=== PATIENT | male | born 1980 | race Caucasian/White ===

== ENCOUNTER 2016-09-30 16:28 | Inpatient (IN) | payer OTHER ==
--- NOTE | ~2016-09-30 | HP ---
Unit #: [id number] #: [id number] Patient: DENNISE ALICIA [id number] [place] [address] [id number] I MR#: [id number] NAME: DENNISE ALICIA ROOM: P209 Age: 35 Sex: M Admission Date: 09/30/2016 : 1980 Attending Physician: Linus Aviles M.D. Admitting Physician: Linus Aviles M.D. Primary Care Physician: Primary Care Physician No HISTORY AND PHYSICAL HISTORY OF PRESENT ILLNESS Dennise is a 35-year-old male admitted on 09/30/[address] [place] [address] for detox from heroin, depression and anxiety. PAST MEDICAL HISTORY None. PAST SURGICAL HISTORY None. ALLERGIES None. SOCIAL HISTORY Smokes 1 pack of cigarettes daily. No alcohol use. Does report daily heroin use. He is currently single and living with his girlfriend and their daughter. FAMILY HISTORY Noncontributory. REVIEW OF SYSTEMS CONSTITUTIONAL: No fever or chills. HEENT: Denies any sore throat, ear pain or runny nose. CARDIOVASCULAR: Denies chest pain, irregular heart rhythm or palpitations. CHEST: Denies shortness of breath or cough. No hemoptysis. GASTROINTESTINAL: Denies nausea, vomiting, diarrhea or chronic constipation. ENDOCRINE: Denies history of increased thirst or urination. No recent significant weight loss or gain. GENITOURINARY: Denies dysuria, frequency, or hematuria. SKIN: Denies any rashes. HEMATOLOGIC: Denies history of increased bleeding or bruising. MUSCULOSKELETAL: Denies any hot, swollen joints. No generalized muscle pain. NEUROLOGIC: Denies problems with vision or speech. No frequent, severe headaches. No numbness, tingling or weakness in any extremities. Denies loss of bladder or bowel control. CURRENT MEDICATIONS None. PHYSICAL EXAMINATION Unit #: [id number] #: [id number] Patient: DENNISE ALICIA GENERAL: Alert, oriented, in no acute distress. VITAL SIGNS: Blood pressure 130/82, heart rate 95, respirations 16. HEIGHT: 6 feet 2. WEIGHT: 170 pounds. SKIN: Warm and dry without rash or lesion. HEENT: Normocephalic. TMs not viewed. Oral and nasal passages clear. Conjunctivae clear. PERRLA. EOMs intact. NECK: Supple without lymphadenopathy or thyromegaly. HEART: Regular rate and rhythm without murmur. LUNGS: Clear. ABDOMEN: Soft, nontender, without masses or hepatosplenomegaly. : Not done. EXTREMITIES: No evidence of cyanosis, clubbing or edema. Moves all without focal deficit. NEUROLOGICAL: Grossly within normal limits. Cranial Nerves: II: Visual townsend are intact. III, IV AND : Extraocular movements are intact. Pupils are equal, round and reactive to light. V: Facial sensation is grossly normal. VII: Facial movements and expression are normal. VIII: Auditory acuity grossly intact. IX, X: Uvula is midline. Phonation is normal. XI: Patient shrugs shoulders and turns head normally. XII: Tongue protrudes in the midline. Sensory and Motor Function: Sensory and motor sensation is grossly normal. Motor: moves all extremities well. Coordination: Gait is normal. Deep Tendon Reflexes: Intact. IMPRESSION Psychiatric admission. RECOMMENDATIONS PSYCHIATRIC: Per psychiatrist. MEDICAL: No contraindications to participate in facility's activities. MEDICAL PROGNOSIS Good. MEDICAL CONDITION Stable. Dictated by... Radha Benoit/frank TD: 10/01/2016 18:42 JOB #: [id number] Unit #: [id number] #: [id number] Patient: DENNISE ALICIA HISTORY AND PHYSICAL Page 1 of 1 X MO YOUNG APRN X HISTORY AND PHYSICAL
--- NOTE | ~2016-09-30 | PN ---
Unit #: [id number] #: [id number] Patient: DENNISE ALICIA [id number] [facility] [address] [place] [address] [id number] MR#: [id number] NAME: DENNISE ALICIA ROOM: P204 Age: 35 Sex: M Admission Date: 09/30/2016 : 1980 Attending Physician: Linus Aviles M.D. Admitting Physician: Linus Aviles M.D. Primary Care Physician: Primary Care Physician Sara PAULINO PROGRESS NOTES DATE 10/04/2016 DISCUSSION The patient continues to complain of severe anxiety. We will go ahead with an increase in the patient's Seroquel dose to 200 mg 4 times daily. His expectations of inpatient care are today gently but firmly redirected. Dictated by... Linus Aviles M.D. CB/frank TD: 10/04/2016 15:13 JOB #: [id number] [facility] PROGRESS NOTES Page 1 of 1 X Linus Aviles MD PROGRESS NOTE
--- NOTE | ~2016-09-30 | DS ---
Unit #: [id number] #: [id number] Patient: DENNISE ALICIA [id number] [place] [address] [id number] MR#: [id number] NAME: DENNISE ALICIA ROOM: P204 Age: 35 Sex: M Admission Date: 09/30/2016 : 1980 Discharge Date: 10/05/2016 Attending Physician: Linus Aviles M.D. Primary Care Physician: Primary Care Physician No DISCHARGE SUMMARY REASON FOR ADMISSION The patient is a 35-year-old single white male admitted to the [address] [place] [address] with a history of heroin abuse as well as complaints of mood instability. HOSPITAL COURSE The patient was admitted to the [address] [place] [address] and placed on routine detoxification protocol for both opioids and alcohol, both of which he claimed to be abusing at the time of admission. The patient was med-seeking throughout stay in the hospital. He did request reinitiation of previously prescribed Neurontin, but this request was denied secondary to the patient's history of opioid abuse. Instead, the patient was rapidly titrated upwards on Seroquel 200 mg to a final dose of four times daily which the patient tolerated well. By 10/05/2016, the patient was in much brighter spirits. His detox was at that point complete, and the patient was denying suicidal ideation. He complained only of some ongoing difficulties with insomnia. He requests discharge (1) __ so ordered. FINAL DIAGNOSES 1. Opioid use disorder. 2. Alcohol use disorder. 3. Mood disorder, unspecified. DISPOSITION ON DISCHARGE The patient was discharged on the following medications: 1. Seroquel 200 mg 4 times daily for mood stabilization. 2. Trazodone 50 mg at h.s. p.r.n. insomnia. DIET AND ACTIVITY No dietary or physical restrictions placed on the patient at the time of discharge. FOLLOWUP Followup will take place through the auspices of [facility]. PROGNOSIS Considered fair. Dictated by... Linus Aviles M.D. CB/sara Unit #: [id number] #: [id number] Patient: DENNISE ALICIA TD: 10/05/2016 13:10 JOB #: [id number] DISCHARGE SUMMARY Page 1 of 1 X Linus Aviles MD DISCHARGE SUMMARY
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
--- NOTE | ~2016-09-30 | PA ---
Unit #: [id number] #: [id number] Patient: DENNISE ALICIA [id number] [facility] [address] [place] [address] [id number] I MR#: [id number] NAME: DENNISE ALICIA ROOM: P209 Age: 35 Sex: M Admission Date: 09/30/2016 : 1980 Date of Assessment: 10/01/2016 Attending Physician: Linus Aviles M.D. Admitting Physician: Linus Aviles M.D. Primary Care Physician: Primary Care Physician No PSYCHIATRIC ASSESSMENT IDENTIFYING INFORMATION The patient is a 35-year-old white male admitted to the [address] [place] [address] with increasing use of heroin and anxiety. INFORMANT(S) Patient. RELIABILITY Fair. CHIEF COMPLAINT My counselor told me to come in. HISTORY OF PRESENT ILLNESS The patient is a 35-year-old white male admitted to the [address] [place] [address] on the recommendation of counselors at [facility] and [facility]. The patient relapsed on heroin and alcohol approximately one week ago. He had one week clean prior to that. The patient reports that he is drinking a fifth of whiskey daily and gram of heroin b.i.d. and snorting. The patient also reports abuse of Xanax and Suboxone but not for several weeks. The patient was reporting positive suicidal ideation and claims to be hearing voices telling him to harm himself. He has a history of one previous hospitalization at [facility] after he had attempted suicide by trying to shoot himself. The patient lives with his girlfriend. He is not presently employed. He states that he does have a history of positive response to Seroquel and wished to restart this medication. He complains of poor sleep. He denies any loss of appetite. The patient lives with his girlfriend and out of wedlock child. PAST PSYCHIATRIC HISTORY As above. FAMILY HISTORY Noncontributory. SOCIAL HISTORY The patient is presently unemployed. He had previously worked with heavy machinery. He is a smoker. MEDICAL HISTORY Noncontributory. MEDICATION HISTORY Unit #: [id number] #: [id number] Patient: DENNISE ALICIA None. ALLERGIES None. SUBSTANCE ABUSE HISTORY Substance use as noted previously. MENTAL STATUS EXAM At this time reveals the patient to be a thin white male appearing his stated age. He appears to be in significant physical distress related to opioid withdrawal. He is awake, alert, oriented in all spheres. His mood is dysphoric. His affect constricted. Speech is generally relevant and coherent. There are no gross deficits in memory or cognition noted. Intelligence is judged to be in the average range based on fund of knowledge. The patient is cooperative throughout the interview. He is currently endorsing positive suicidal ideation and auditory hallucinations. He denies homicidal ideation. He reports positive auditory hallucinations. His judgement and insight appear to be reasonably intact. ASSETS AND LIABILITIES Assets, motivation for change. Liabilities, lack of resources. ADMITTING DIAGNOSES 1. Opioid use disorder. 2. Alcohol use disorder. 3. Sedative/hypnotic use disorder. 4. Mood disorder, unspecified. PSYCHIATRIC PLAN/TREATMENT GOALS The patient remains hospitalize for safety and stabilization. Routine detoxification protocol to cover both alcohol and opioids has been initiated. I will also begin Seroquel 50 mg t.i.d. to address the patient's complaints of anxiety and will add trazodone 50 mg at h.s. for sleep. The patient will participate in appropriate glover and milieu activities. ESTIMATED LENGTH OF STAY Three to five days. Dictated by... Linus Aviles M.D. DANIEL/frank TD: 10/01/2016 15:12 JOB #: [id number] Unit #: [id number] #: [id number] Patient: DENNISE ALICIA PSYCHIATRIC ASSESSMENT Page 1 of 1 X Linus Aviles MD X PSYCHIATRIC ASSESSMENT
[~2016-09-30 16:28] MED LIST: NO MEDICATIONS; ULTRAM PO
[2016-10-01 11:48] LABS: BASOPHIL% 0.6 % (0-2.5); EOSINOPHIL# 0.1 X10e3 (0-0.7); EOSINOPHIL% 1.4 % (0.0-7.0); HEMATOCRIT 42.9 % (38.0-50.0); HEMOGLOBIN 14.2 gm/dL (13.0-16.0); LYMPHOCYTE# 2.8 X10e3 (1.0-3.5); LYMPHOCYTE% 39.9 % (17.0-45.0); MEAN CELL VOLUME 92.9 FL (83-96); MEAN CORPUSCULAR HEMOGLOBIN 30.7 PG (28-34); MEAN PLATELET VOLUME 8.6 FL (6.5-11.5); MONOCYTE# 0.7 X10e3 (0-1.0); MONOCYTE% 10.7 % (3.0-12.0); NEUTROPHIL# 3.3 X10e3 (1.5-7.1); NEUTROPHIL% 47.4 % (40-75); PLATELET COUNT 231 X10e3 (140-420); RED BLOOD COUNT 4.62 X10e (3.90-5.60); RED CELL DISTRIBUTION WIDTH 14.5 % (11.0-15.5); WHITE BLOOD COUNT 6.9 X10e3 (4.0-10.5)
[2016-10-01 11:57] LABS: DIFF IND NO
[2016-10-01 12:00] LABS: THYROID STIMULATING HORMONE 1.61 uIU/ml (0.34-5.60)
[2016-10-01 12:03] LABS: ALBUMIN SERUM 4.2 g/dL (3.5-5.0); BILIRUBIN,TOTAL 0.7 mg/dL (0.2-2.0); BUN/CREATININE RATIO 21.25; CREATININE SERUM 0.8 mg/dL (0.6-1.4); GLOM FILT RATE Estimated 116.6 mL/min (>60); PROTEIN TOTAL SERUM 7.1 g/dL (6.0-8.3)
[2016-10-01 12:07] LABS: FREE THYROXIN (T4) 0.96 ng/dL (0.58-1.64)
[2016-10-02 11:32] LABS: URINE APPEARANCE TURBID; URINE BILIRUBIN NEG (NEG); URINE BLOOD NEG (NEG); URINE COLOR DK YELLOW; URINE GLUCOSE NEG (NEG); URINE KETONE NEG (NEG); URINE LEUKOCYTE ESTERASE NEG (NEG); URINE NITRATE NEG (NEG); URINE PROTEIN NEG (NEG); URINE SPECIFIC GRAVITY 1.015 (1.003-1.035); URINE UROBILINOGEN 0.2 MG/DL (NEG)
[2016-10-02 12:30] LABS: AMPHETAMINE NEG (NEG); BARBITURATES POS (NEG); BENZODIAZEPINES POS (NEG); COCAINE NEG (NEG); MARIJUANA POS (NEG); OPIATES POS (NEG); TRICYCLIC ANTIDEPRESSANTS POS (NEG); U METHADONE NEG (NEG)
== END 2016-10-05 14:10 | DRG 897 ==
LOC: P2S 16:28 → POF 10-02 22:59 → P2S 10-02 23:02
PROVIDERS: Specialist
PROC: HZ2ZZZZ Detoxification Services for Substance Abuse Treatment (ICD-10-PCS; principal; 2016-09-30)
DX: F11.10 Opioid abuse, uncomplicated (principal); R45.851 Suicidal ideations; R44.0 Auditory hallucinations; F10.10 Alcohol abuse, uncomplicated; F13.10 Sedative, hypnotic or anxiolytic abuse, uncomplicated; F39 Unspecified mood [affective] disorder; F17.210 Nicotine dependence, cigarettes, uncomplicated; Z91.5 Personal history of self-harm; F32.9 Major depressive disorder, single episode, unspecified; F41.9 Anxiety disorder, unspecified
CPT/HCPCS: 80053; 80307; 81003; 84439; 84443; 85025; 86592

== ENCOUNTER 2016-12-08 07:00 | Inpatient (IN) | payer OTHER ==
--- NOTE | ~2016-12-08 | PA ---
Unit #: [id number] #: [id number] Patient: DENNISE ALICIA [id number] [facility] [address] [place] [address] [id number] I MR#: [id number] NAME: DENNISE ALICIA ROOM: P256 Age: 36 Sex: M Admission Date: 12/08/2016 : 1980 Date of Assessment: 12/08/2016 Attending Physician: Linus Aviles M.D. Admitting Physician: Linus Aviles M.D. Primary Care Physician: Primary Care Physician No PSYCHIATRIC ASSESSMENT IDENTIFYING INFORMATION The patient is a 36-year-old white male with a history of opioid abuse. He is admitted in a state of psychosis in transfer from [facility]. CHIEF COMPLAINT None given. INFORMANT(S) Patient, reliability is poor. HISTORY OF PRESENT ILLNESS The patient is a 36-year-old white male last discharged from his facility in late September of 2016. He has a history of heroin abuse and also complains of anxiety. The patient had presented under reasons which are unclear (1) __ [facility] and appeared there to be in a state of some psychosis stating a wish to go to [place] and repeatedly saying that he works for an [employer]. When seen today, the patient appears quite anxious and dysphoric, and appears intoxicated. He is unable to provide much in the way of usable history. He does request reinitiation of his previously prescribed Neurontin. For more complete history of present illness, please refer to previously dictated notes. PAST PSYCHIATRIC HISTORY Reviewed, no changes. PAST MEDICAL HISTORY Reviewed, no changes. MEDICATIONS The patient was discharged on trazodone and Seroquel at the time of his last discharge from this facility. ALLERGIES None. FAMILY HISTORY Reviewed, no changes. SOCIAL HISTORY Reviewed, no changes. MENTAL STATUS EXAMINATION Examination at this time reveals the patient to be a thin while appearing Unit #: [id number] #: [id number] Patient: DENNISE ALICIA his stated age. He is in no apparent physical distress at the time of examination. He is awake, alert, and oriented in all spheres. His mood is dysphoric and fretful, his affect blunted. Speech is repetitive. Formal testing of memory and cognition are not possible. The patient does appear to be in a state of some intoxication. His judgment and insight appear to be significantly impaired. He does not at this point endorse suicidal ideation but exhibits significant thought blocking and disorganization of thought. ASSETS AND LIABILITIES The patient's assets are to be assessed. Liabilities: Ongoing substance use. DIAGNOSTIC IMPRESSION 1. Opioid use disorder. 2. Alcohol use disorder. 3. Sedative hypnotic use disorder. 4. Mood disorder unspecified. TREATMENT PLAN The patient remains hospitalized for safety and stabilization. We will go ahead and in the absence of urine drugs screen which one would have thought would have been performed at [facility], we will order stat urine drugs screen, and we will likewise place the patient on routine detoxification protocol for opioids and sedative hypnotics. The patient will participate in appropriate order of milieu activities. ESTIMATED LENGTH OF STAY 5 to 7 days. Dictated by... Linus Aviles M.D. DANIEL/sara TD: 12/08/2016 14:18 JOB #: [id number] PSYCHIATRIC ASSESSMENT Page 1 of 1 X Linus Aviles MD X PSYCHIATRIC ASSESSMENT
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
--- NOTE | ~2016-12-08 | HP ---
Unit #: [id number] #: [id number] Patient: DENNISE ALICIA [id number] [facility] [address] [place] [address] [id number] MR#: [id number] NAME: DENNISE ALICIA ROOM: P256 Age: 36 Sex: M Admission Date: 12/08/2016 : 1980 Attending Physician: Linus Aviles M.D. Admitting Physician: Linus Aviles M.D. Primary Care Physician: Primary Care Physician No HISTORY AND PHYSICAL HISTORY OF PRESENT ILLNESS Dennise is a 36 year old admitted to [address] [place] [address] because of his continued drug use. PAST MEDICAL HISTORY 1. Long history of illicit substance abuse. 2. History of withdrawal seizures. 3. History of alcohol abuse. PAST SURGICAL HISTORY Nothing reported. ALLERGIES No known drug allergies. SOCIAL HISTORY Smokes 1 pack per day. Drinks alcohol and admits to a history of illicit substance abuse. FAMILY HISTORY Medically noncontributory. REVIEW OF SYSTEMS He does not answer questions appropriately. There are no reports of nausea, vomiting or diarrhea. He has had no cough or increased temperature. CURRENT MEDICATIONS Detox protocol. PHYSICAL EXAMINATION GENERAL: Alert, well-nourished, in no apparent distress. VITAL SIGNS: Blood pressure 110/70, heart rate 80, respirations 16, temperature 98.6. WEIGHT: 185. HEIGHT: 6 feet 2 inches. SKIN: Warm and dry without rash or lesion. HEENT: Normocephalic. TMs not viewed. Oral and nasal passages clear. Conjunctivae clear. PERRLA. EOMs intact. NECK: Supple without lymphadenopathy or thyromegaly. HEART: Regular rate and rhythm without murmur. LUNGS: Clear. ABDOMEN: Soft, nontender. Unit #: [id number] #: [id number] Patient: DENNISE ALICIA : Not done. EXTREMITIES: No evidence of cyanosis, clubbing or edema. Moves all without focal deficit. NEUROLOGICAL: Unable to complete extended exam. He does move all extremities without focal deficit. Hand global recruiter is equal and gait is normal. IMPRESSION Psychiatric admission. RECOMMENDATIONS PSYCHIATRIC: Per psychiatrist. MEDICAL: See no contraindications to participate in facility's activities. MEDICAL PROGNOSIS Good. MEDICAL CONDITION Stable. Dictated by... Gregoria Barrientos P.A.-C. for Clemente Robertson/frank TD: 12/08/2016 17:50 JOB #: [id number] HISTORY AND PHYSICAL Page 1 of 1 X Gregoria Barrientos HISTORY AND PHYSICAL
[2016-12-08 16:21] LABS: URINE APPEARANCE CLEAR; URINE BLOOD NEG (NEG); URINE COLOR DK YELLOW; URINE GLUCOSE NEG (NEG); URINE KETONE TRACE (NEG); URINE LEUKOCYTE ESTERASE NEG (NEG); URINE NITRATE NEG (NEG); URINE PROTEIN TRACE (NEG)
[2016-12-08 16:24] LABS: URINE BILIRUBIN NEG (NEG)
[2016-12-08 16:47] LABS: AMPHETAMINE NEG (NEG); BARBITURATES NEG (NEG); BENZODIAZEPINES POS (NEG); COCAINE NEG (NEG); MARIJUANA POS (NEG); OPIATES POS (NEG); TRICYCLIC ANTIDEPRESSANTS NEG (NEG); U METHADONE NEG (NEG)
[2016-12-09 12:25] LABS: BASOPHIL# 0.1 X10e3 (0-0.3); BASOPHIL% 0.7 % (0-2.5); EOSINOPHIL# 0.1 X10e3 (0-0.7); EOSINOPHIL% 1.9 % (0.0-7.0); HEMATOCRIT 47.4 % (38.0-50.0); HEMOGLOBIN 15.6 gm/dL (13.0-16.0); LYMPHOCYTE# 2.2 X10e3 (1.0-3.5); LYMPHOCYTE% 28.1 % (17.0-45.0); MEAN CELL VOLUME 95.3 FL (83-96); MEAN CORPUSCULAR HEMOGLOBIN 31.4 PG (28-34); MEAN CORPUSCULAR HGB CONC 32.9 g/dL (30-36); MEAN PLATELET VOLUME 9.3 FL (6.5-11.5); MONOCYTE# 0.6 X10e3 (0-1.0); MONOCYTE% 8.3 % (3.0-12.0); NEUTROPHIL# 4.7 X10e3 (1.5-7.1); PLATELET COUNT 192 X10e3 (140-420); RED BLOOD COUNT 4.97 X10e (3.90-5.60); RED CELL DISTRIBUTION WIDTH 14.8 % (11.0-15.5); WHITE BLOOD COUNT 7.7 X10e3 (4.0-10.5)
[2016-12-09 13:09] LABS: DIFF IND NO
[2016-12-09 13:24] LABS: ALBUMIN SERUM 4.4 g/dL (3.5-5.0); BILIRUBIN,TOTAL 0.7 mg/dL (0.2-2.0); BUN/CREATININE RATIO 25.55; CREATININE SERUM 0.9 mg/dL (0.6-1.4); GLOM FILT RATE Estimated 110.3 mL/min (>60); POTASSIUM 4.4 mmol/L (3.5-5.1); PROTEIN TOTAL SERUM 7.1 g/dL (6.0-8.3)
== END 2016-12-10 12:45 | disposition home or self-care (01) | DRG 897 ==
LOC: P2L 09:59 → P1S 12-09 13:32
PROVIDERS: Specialist
PROC: HZ2ZZZZ Detoxification Services for Substance Abuse Treatment (ICD-10-PCS; principal; 2016-12-08)
DX: F11.10 Opioid abuse, uncomplicated (principal); F10.10 Alcohol abuse, uncomplicated; F13.10 Sedative, hypnotic or anxiolytic abuse, uncomplicated; F17.210 Nicotine dependence, cigarettes, uncomplicated; F12.10 Cannabis abuse, uncomplicated
CPT/HCPCS: 80053; 80307; 81003; 85025; 86592